=== PATIENT | female | born 1970 | race Two or more races ===

== ENCOUNTER 2019-02-14 07:49 | Day surgery (SDC) | payer OTHER ==
[~2019-02-14 07:49] MED LIST: COZAAR100 MG PO; ZIAC 2.5-6.251 EACH PO
== END 2019-02-14 18:45 | disposition home or self-care (01) ==
LOC: CIR.AMB 07:49
DX: D24.1 Benign neoplasm of right breast (principal)

== ENCOUNTER 2019-10-07 07:00 | Day surgery (SDC) | payer OTHER ==
[~2019-10-07] VITALS: Ht 177.8 cm; Wt 90.3 kg
== END 2019-10-07 13:00 | disposition home or self-care (01) ==
LOC: CIR.AMB 07:00 → SURH 07:45 → EDSTATUS 07:45 → SURH 10:15 → CIR.AMB 13:00 → O/R 16:20 → SURH 10-10 07:45
DX: D05.11 Intraductal carcinoma in situ of right breast (principal); Z41.1 Encounter for cosmetic surgery; N64.81 Ptosis of breast; N62 Hypertrophy of breast; Z90.13 Acquired absence of bilateral breasts and nipples

== ENCOUNTER → 2020-01-07 06:00 | Outpatient (CLI) | payer OTHER ==
[~2020-01-07 06:00] MED LIST changes: +FEMARA2.5 MG PO
== END | disposition home or self-care (01) ==
LOC: LAB 06:00 → ADM 01-08 08:30 → CIR.AMB 01-12 07:00 → EDSTATUS 01-12 08:30 → CIR.AMB 01-12 08:30
PROVIDERS: ATTEND Plastic Surgery
DX: C50.411 Malignant neoplasm of upper-outer quadrant of right female breast (principal); Z03.818 Encounter for observation for suspected exposure to other biological agents ruled out; Z11.59 Encounter for screening for other viral diseases

== ENCOUNTER 2020-02-13 05:30 | Day surgery (SDC) | payer OTHER | END 2020-02-13 12:05 | disposition home or self-care (01) | LOC: CIR.AMB 05:30 | PROVIDERS: ATTEND Plastic Surgery | DX: C50.411 Malignant neoplasm of upper-outer quadrant of right female breast (principal); N65.1 Disproportion of reconstructed breast; Z90.13 Acquired absence of bilateral breasts and nipples ==